=== PATIENT | female | born 1990 | race African-American/Black ===

== ENCOUNTER 2022-02-15 06:11 | Day surgery (SDC) | payer OTHER ==
[~2022-02-15] VITALS: Ht 177.8 cm; Wt 98.8 kg
[~2022-02-15 06:11] MED LIST: ACETAMINOPHEN 650 MG SUPP PR ONE; CEPH500T PO; LR 1,000 ML IV SCH; PROAAER10 INH
[2022-02-15] MEDS ORDERED: LR 1,000 ML IV SCH ×3 (06:25→08:55)
[2022-02-15] MEDS ORDERED: MIDAZOLAM INJ 2MG/2ML VIAL (J2250 PER 1MG) As Ordered ONE (06:51)
[2022-02-15] MEDS ORDERED: fentaNYL 100 MCG/2 ML INJECTION As Ordered ONE (06:52)
[2022-02-15] MEDS ORDERED: LIDOCAINE 2% 100MG/5ML SDV (FOR ANES.) As Ordered ONE (06:55)
[2022-02-15] MEDS ORDERED: ROCURONIUM BROMIDE 50 MG/5 ML VIAL As Ordered ONE (06:55)
[2022-02-15] MEDS ORDERED: dexameTHASONE 4 MG/ML 1ML VIAL (J1100 PER 1MG) As Ordered ONE ×2 (06:57→07:55)
[2022-02-15 07:12] LABS: HEMATOCRIT 36.1 % (36.0-47.0); HEMOGLOBIN 12.6 g/dl (12.0-15.5); MEAN CORPUSCULAR HEMOGLOBIN 27.7 pg (27.0-33.0); MEAN CORPUSCULAR HGB CONC 34.9 g/dl (32.0-36.5); MEAN CORPUSCULAR VOLUME 79.3 fl (80.0-96.0); PLATELET COUNT, AUTOMATED 309 10^3/uL (150-450); RED BLOOD COUNT 4.55 10^6/uL (4.00-5.40); WHITE BLOOD COUNT 6.4 10^3/uL (4.0-10.0)
[2022-02-15] MEDS ORDERED: ACETAMINOPHEN 650 MG SUPP As Ordered ONE (07:13)
[2022-02-15] MEDS ORDERED: BUPIVACAINE HCL 0.5% 30ML VIAL As Ordered ONE (07:13)
[2022-02-15 07:39] LABS: BLOOD UREA NITROGEN 17 MG/DL (7-18); CALCIUM LEVEL 8.4 MG/DL (8.5-10.1); CARBON DIOXIDE LEVEL 27 MEQ/L (21-32); CHLORIDE LEVEL 110 MEQ/L (98-107); CREATININE FOR GFR 0.76 MG/DL (0.55-1.30); GLOMERULAR FILTRATION RATE > 60.0 (>60); GLUCOSE, FASTING 90 MG/DL (70-100); HCG, SERUM QUANTITATIVE < 1.0 MIU/ML; POTASSIUM SERUM 4.6 MEQ/L (3.5-5.1); SODIUM LEVEL 140 MEQ/L (136-145)
[2022-02-15] MEDS ORDERED: ONDANSETRON 4MG/2ML VIAL As Ordered ONE (07:55)
[2022-02-15] MEDS ORDERED: propofoL 200 MG/20 ML VIAL As Ordered ONE ×2 (08:07→08:44)
[2022-02-15] MEDS ORDERED: PHENYLephrine 500MCG 5ML (100MCG/ML) SYRINGE As Ordered ONE (08:18)
[2022-02-15] MEDS ORDERED: SUGAMMADEX SODIUM 500 MG/5 ML VIAL (BRIDION) As Ordered ONE (08:20)
[2022-02-15] MEDS ORDERED: HYDROmorphone HCL 2MG/ML 1ML VIAL As Ordered ONE (08:27)
[2022-02-15] MEDS ORDERED: KETOROLAC 60MG 2ML VIAL As Ordered ONE (08:42)
[2022-02-15] MEDS ORDERED: MORPHINE 2 MG/ML 1ML VIAL IV PRN (08:55)
[2022-02-15] MEDS ORDERED: oxyCODONE 5MG TAB PO PRN (08:55)
[2022-02-15] MEDS ORDERED: ONDANSETRON 4MG/2ML VIAL IV PRN (08:55)
[2022-02-15] MEDS ORDERED: fentaNYL 100 MCG/2 ML INJECTION IV PRN (08:55)
[2022-02-15 12:25] VITALS: BP 128/73
== END 2022-02-15 12:38 | disposition home or self-care (01) ==
LOC: M SDC 06:11
PROVIDERS: ATTEND Obstetrics & Gynecology
DX: Z30.2 Encounter for sterilization (principal); N84.1 Polyp of cervix uteri; G40.89 Other seizures; J45.909 Unspecified asthma, uncomplicated; Z79.51 Long term (current) use of inhaled steroids; Z88.8 Allergy status to other drugs, medicaments and biological substances; F43.10 Post-traumatic stress disorder, unspecified
CPT/HCPCS: 36415; 57500; 58661; 80048; 84702; 85027; 87070; 87205; 88302; 88305; J1100; J1170; J1885; J2250; J2370; J2405; J3010

== ENCOUNTER → 2025-01-28 | Outpatient (CLI) | payer OTHER ==
[~2025-01-28] MED LIST changes: -ACETAMINOPHEN 650 MG SUPP PR ONE; -LR 1,000 ML IV SCH
== END ==
LOC: M PLAIMG 07:04
PROVIDERS: ATTEND Orthopaedic Surgery
DX: M25.074 Hemarthrosis, right foot (principal)